=== PATIENT | male | born 2000 | race Caucasian/White ===

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

== ENCOUNTER 2019-06-27 16:32 | Emergency (ER) | payer SELFPAY ==
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
[2019-06-27 17:53] LABS: ABS Eosinophils 0.2 10^3/ul (0-0.6); ABS Monocytes 0.5 10^3/ul (0-0.8); ABS Neutrophils 6.1 10^3/ul (1.5-7.7); Eosinophil % 2.2 %; Hematocrit 45 % (42-52); Lymphocyte % 22.4 %; Mean Corpuscular HGB Conc 34 g/dL (31-36); Mean Corpuscular Hemoglobin 28 pg (27-31); Mean Corpuscular Volume 82 fL (80-94); Mean Platelet Volume 7.2 fL (7.4-10.4); Platelet Count 311 10^3/uL (150-450); Red Blood Count 5.43 10^6 /uL (4.18-5.48); Red Cell Distribution Width 13 % (10-15); White Blood Count 8.8 10^3/uL (3.5-10.8)
[2019-06-27] MEDS ORDERED: Ketorolac *IM* INJ* 60 MG/2 ML VIAL IM ONE (18:03)
[2019-06-27 18:09] LABS: Albumin 4.6 g/dL (3.2-5.2); Albumin/Globulin Ratio 1.9 (1-3); BUN/Creatinine Ratio 18.2 (8-20); Calcium 9.9 mg/dL (8.6-10.3); EGFR African American 155.9 (>60); EGFR Non-African American 128.8 (>60); Globulin 2.4 g/dL (2-4); Potassium 3.8 mmol/L (3.5-5.0); Total Bilirubin 0.5 mg/dL (0.2-1.0)
[2019-06-27] MEDS ORDERED: Iohexol 300* (CONTRAST) 10 ML SDV IV ONE (18:18)
[2019-06-27] MEDS ORDERED: Ketorolac INJ* 30 MG/ML 1 ML VIAL IV ONE (18:56)
[2019-06-27 20:13] VITALS: BP 130/81
== END 2019-06-27 20:12 | disposition home or self-care (01) ==
LOC: ED 16:32
DX: R07.89 Other chest pain (principal); V43.62XA Car passenger injured in collision with other type car in traffic accident, initial encounter; Y92.410 Unspecified street and highway as the place of occurrence of the external cause; R00.0 Tachycardia, unspecified; J45.909 Unspecified asthma, uncomplicated; Z87.891 Personal history of nicotine dependence
CPT/HCPCS: 36415; 71046; 71260; 74177; 80053; 83605; 84484; 85025; 93005; 96374; 99282; J1885; Q9967

== ENCOUNTER 2019-10-20 14:17 | Emergency (ER) | payer OTHER ==
[2019-10-20 15:05] LABS: ABS Eosinophils 0.2 10^3/ul (0-0.6); ABS Lymphocytes 1.2 10^3/ul (1.0-4.8); ABS Monocytes 0.5 10^3/ul (0-0.8); ABS Neutrophils 7.7 10^3/ul (1.5-7.7); Eosinophil % 1.6 %; Hematocrit 45 % (42-52); Hemoglobin 15.4 g/dL (14.0-18.0); Mean Corpuscular HGB Conc 35 g/dL (31-36); Mean Corpuscular Hemoglobin 28 pg (27-31); Mean Corpuscular Volume 82 fL (80-94); Mean Platelet Volume 7.4 fL (7.4-10.4); Platelet Count 256 10^3/uL (150-450); Red Blood Count 5.45 10^6 /uL (4.18-5.48); Red Cell Distribution Width 14 % (10-15); White Blood Count 9.5 10^3/uL (3.5-10.8)
[2019-10-20 15:21] LABS: Albumin 5.1 g/dL (3.2-5.2); Albumin/Globulin Ratio 2.2 (1-3); BUN/Creatinine Ratio 17.9 (8-20); Calcium 10.2 mg/dL (8.6-10.3); EGFR African American 153.5 (>60); EGFR Non-African American 126.9 (>60); Globulin 2.3 g/dL (2-4); Potassium 3.8 mmol/L (3.5-5.0); Total Bilirubin 3.1 mg/dL (0.2-1.0); Total Protein 7.4 g/dL (6.4-8.9)
[2019-10-20] MEDS ORDERED: Ondansetron INJ* 2 MG/ML VIAL IV ONE (16:27)
[2019-10-20] MEDS ORDERED: Morphine 4 MG/ML VIAL (1 ml) 4 MG/ML VIAL IV ONE ×2 (16:27)
--- NOTE | 2019-10-20 16:30 | ED ---
Abdominal Pain/Male - HPI Summary HPI Summary: This pt is a 19 Y/O M presenting to [facility] with a CC of RUQ abdominal pain that has been present for a week since he was recently diagnosed with gallstones. He states that the pain is currently a 10/10 in severity. He has N/V and CP due to the pain. He denies any fevers, headaches, chills, and SOB. He currently denies any other PMHx besides the gallstones. He has no aggravating or alleviating factors. - History of Current Complaint Chief Complaint: EDAbdPain Stated Complaint: RUQ ABD PAIN PER EMS Time Seen by Provider: 10/20/19 15:28 Hx Obtained From: Patient Onset/Duration: Sudden Onset, Still Present, Worse Since - onset Timing: Constant Severity Initially: Mild Severity Currently: Severe Pain Intensity: 10 Pain Scale Used: 0-10 Numeric Location: Discrete At: RUQ Radiates: Yes Radiates to: Chest Character: Colicy Aggravating Factor(s): Nothing Alleviating Factor(s): Nothing Associated Signs And Symptoms: Positive: Negative - headaches, SOB, chills, Chest Pain, Nausea, Vomiting. Negative: Fever - Allergies/Home Medications Allergies/Adverse Reactions: Allergies Allergy/AdvReac Type Severity Reaction Status Date / Time No Known Allergies Allergy Verified 10/20/19 14:23 Home Medications: Home Medications Nizatidine 150 mg PO BID 05/05/16 [History Confirmed 06/27/19] Ventolin HFA Inhaler* 2 puff INH Q4H PRN 05/05/16 [History Confirmed 06/27/19] Quetiapine Fumarate [Seroquel] 300 mg PO BEDTIME #30 tab 05/13/16 [Rx Confirmed 06/27/19] Cholecalciferol (Vitamin D3) [Vitamin D] 1,000 unit PO DAILY 03/03/17 [History Confirmed 06/27/19] [place] Carbonate TAB* 900 mg PO BID 03/03/17 [History Confirmed 06/27/19] LoraTADine TAB(NF) [Claritin 10 MG TAB(NF)] 10 mg PO DAILY 03/03/17 [History Confirmed 06/27/19] lamoTRIgine TAB(*) [LaMICtal TAB(*)] 100 mg PO BEDTIME 03/03/17 [History Confirmed 06/27/19] PMH/Surg Hx/FS Hx/Imm Hx Previously Healthy: Yes Endocrine/Hematology History: Denies: Hx Blood Disorders, Hx Diabetes, Hx Anemia Cardiovascular History: Denies: Hx Angina, Hx Atrial Fibrillation, Hx Cardiac Arrest, Hx Hypotension , Hx Hypertension, Hx Myocardial Infarction, Hx Rheumatic Fever Respiratory History: Reports: Hx Asthma - Only uses in fall season GI History: Reports: Hx Gall Bladder Disease - gallstones, Hx Gastroesophageal Reflux Disease History: Denies: Hx Renal Disease Musculoskeletal History: Reports: Hx Arthritis - Bilateral hands and arms, back Sensory History: Reports: Hx Contacts or Glasses - At home Opthamlomology History: Reports: Hx Contacts or Glasses - At home Neurological History: Reports: Hx Headaches, Hx Migraine - Couple of times per year Psychiatric History: Reports: Hx [facility]x - [facility], Hx Bipolar Disorder Denies: Hx Eating Disorder, Hx of Violent Episodes Against Others - Cancer History Hx Chemotherapy: No Hx Radiation Therapy: No - Surgical History Surgical History: None - Immunization History Immunizations Up to Date: Yes Infectious Disease History: No Infectious Disease History: Denies: Traveled Outside the in Last 30 Days - Family History Known Family History: Positive: Other - pos: bipolar, - Social History Occupation: Employed Part-time Lives: Alone Alcohol Use: None Hx Substance Use: No Substance Use Type: Reports: None Substance Use Comment - Amount & Last Used: Reports last use one year ago Hx Tobacco Use: Yes Smoking Status (MU): Light Every Day Tobacco Smoker Type: Cigarettes Amount Used/How Often: 2 cigarettes a day Have You Smoked in the Last Year: Yes Review of Systems Negative: Fever, Chills Positive: Chest Pain Negative: Shortness Of Breath Positive: Abdominal Pain - RUQ, Vomiting, Nausea Negative: Headache All Other Systems Reviewed And Are Negative: Yes Physical Exam - Summary Physical Exam Summary: Constitutional: Well-developed, Well-nourished, Alert. Mild distressed, scars on his forearms Skin: Warm, Dry HENT: Normocephalic; Atraumatic Eyes: Conjunctiva normal Neck: Musculoskeletal ROM normal neck. (-) JVD, (-) Stridor, (-) Nuchal rigidity Cardio: Rhythm regular, rate normal, Heart sounds normal; Intact distal pulses; Radial pulses are 2+ and symmetric. (-) Murmur Pulmonary/Chest wall: Effort normal. (-) Respiratory distress, (-) Wheezes, (-) Rales Abd: Soft, RUQ tenderness, (-) Distension, mild Guarding, (-) Rebound Musculoskeletal: (-) Edema Lymph: (-) Cervical adenopathy Neuro: Alert, Oriented x3 Psych: Mood and affect Normal Triage Information Reviewed: Yes Vital Signs On Initial Exam: Initial Vitals Temp Pulse Resp BP Pulse Ox 97.8 F 84 12 136/88 98 10/20/19 14:18 10/20/19 14:18 10/20/19 14:18 10/20/19 14:18 10/20/19 14:18 Vital Signs Reviewed: Yes Procedures - Sedation Patient Received Moderate/Deep Sedation with Procedure: No Diagnostics - Vital Signs Vital Signs Temp Pulse Resp BP Pulse Ox 10/20/19 14:18 97.8 F 84 12 136/88 98 - Laboratory Lab Results: Lab Results 10/20/19 10/20/19 Range/Units 14:54 14:57 WBC 9.5 (3.5-10.8) 10^3/uL RBC 5.45 (4.18-5.48) 10^6 /uL Hgb 15.4 (14.0-18.0) g/dL Hct 45 (42-52) % MCV 82 (80-94) fL MCH 28 (27-31) pg MCHC 35 (31-36) g/dL RDW 14 (10-15) % Plt Count 256 (150-450) 10^3/uL MPV 7.4 (7.4-10.4) fL Neut % (Auto) 80.3 % Lymph % (Auto) 13.0 % Gilmer % (Auto) 5.0 % Eos % (Auto) 1.6 % Baso % (Auto) 0.1 % Absolute Neuts (auto) 7.7 (1.5-7.7) 10^3/ul Absolute Lymphs (auto) 1.2 (1.0-4.8) 10^3/ul Absolute Monos (auto) 0.5 (0-0.8) 10^3/ul Absolute Eos (auto) 0.2 (0-0.6) 10^3/ul Absolute Basos (auto) 0.0 (0-0.2) 10^3/ul Absolute Nucleated RBC 0.0 10^3/ul Nucleated RBC % 0.0 Sodium 139 (135-145) mmol/L Potassium 3.8 (3.5-5.0) mmol/L Chloride 104 (101-111) mmol/L Carbon Dioxide 26 (22-32) mmol/L Anion Gap 9 (2-11) mmol/L BUN 14 (6-24) mg/dL Creatinine 0.78 (0.67-1.17) mg/dL Est GFR ( Amer) 153.5 (>60) Est GFR (Non-Af Amer) 126.9 (>60) BUN/Creatinine Ratio 17.9 (8-20) Glucose 124 H (70-100) mg/dL Calcium 10.2 (8.6-10.3) mg/dL Total Bilirubin 3.10 H (0.2-1.0) mg/dL AST 293 H (13-39) U/L ALT 475 H (7-52) U/L Alkaline Phosphatase 197 H (34-104) U/L Total Protein 7.4 (6.4-8.9) g/dL Albumin 5.1 (3.2-5.2) g/dL Globulin 2.3 (2-4) g/dL Albumin/Globulin Ratio 2.2 (1-3) Lipase Pending Result Diagrams: 10/20/19 14:57 10/20/19 14:54 Lab Statement: Any lab studies that have been ordered have been reviewed, and results considered in the medical decision making process. - Ultrasound Abdomen X-Ray Ultrasound Interpretation Completed By: Radiologist Summary of Ultrasound Findings: CHOLELITHIASIS, IN ADDITION THERE IS GALLBLADDER WALL THICKENING AND. SUGGESTING THE POSSIBILITY OF ACUTE CHOLECYSTITIS. ED physician has reviewed this report. Abdominal Pain Male Course/Dx - Course Course Of Treatment: 19 y/o male w hx gallstones p/w abdominal pain. - mild distress, reporting epigastric pain. Labs notable for elevated LFTs, bili c/w possible obstruction. US w thickened GB wall. CBD 3 mm. Lipase 2200. Likely gallstone pancreatitis. Given IVF, morphine, zosyn. D/w GI who recommends transfer. Send to [facility] for possible ERCP - Diagnoses Provider Diagnoses: Gallstone pancreatitis - Provider Notifications Discussed Care Of Patient With: Marcus Eddy Time Discussed With Above Provider: 16:39 Instructed by Provider To: Transfer - Dr. Eddy, surgery, recommended transfering the pt for an ERCP. Discharge ED - Sign-Out/Discharge Documenting (check all that apply): Patient Departure - transfer - Discharge Plan Condition: Stable Disposition: TRANS HIGHER LVL OF CARE FAC Referrals: Ryanne Jennings DO [Primary Care Provider] - - Billing Disposition and Condition Condition: STABLE Disposition: Trans Higher Lvl of Care Fac - Attestation Statements Document Initiated by Scribe: Yes Documenting Scribe: Neil Allen Provider For Whom Tamiko is Documenting (Include Credential): Lul Loya MD Scribe Attestation: I, Neil Allen, scribed for Lul Loya MD on 10/20/19 at 1728. Scribe Documentation Reviewed: Yes Provider Attestation: The documentation as recorded by the Neil floyd accurately reflects the service I personally performed and the decisions made by me, Lul Loya MD Status of Scribe Document: Viewed Consult Consult: Transfer center consulted at 1655 and stated that they will follow up with [facility] to try and transfer the pt for an ERCP. 170, Dr. Kirkpatrick and Dr. Montano, [facility] have agreed to admit the pt for further treatment and possible ERCP.
[2019-10-20] MEDS ORDERED: Piperacillin/Tazobac ADVAN(*) 3.375 GM in NS 0.9% 100 ML* 100 ML IVPB ONE (16:51)
[2019-10-20] MEDS ORDERED: NS 0.9% 1000 ML** 1,000 ML IV ONE (16:58)
[2019-10-20 18:16] VITALS: BP 129/82
== END 2019-10-20 20:20 | disposition short-term general hospital (02) ==
LOC: ED 14:17
DX: K85.10 Biliary acute pancreatitis without necrosis or infection (principal); F31.9 Bipolar disorder, unspecified; F17.210 Nicotine dependence, cigarettes, uncomplicated; Z79.899 Other long term (current) drug therapy
CPT/HCPCS: 36415; 76705; 80053; 83690; 85025; 96361; 96374; 96375; 96376; 99284; J2270; J2405; J2543